=== PATIENT | male | born 1940 | race Caucasian/White ===

== ENCOUNTER 2016-06-25 16:48 | Emergency (ER) | payer MEDICARE, OTHER ==
[2016-06-25 16:01] LABS: WBC (NOT ORDERED) (RFLEX) 0 (0-5)
[2016-06-25 16:11] LABS: BASOPHILS 0.4 %; BASOPHILS ABSOLUTE 0.03 10/3/uL (0.0-0.16); EOSINOPHILS 2.6 %; EOSINOPHILS ABSOLUTE 0.22 10/3/uL (0.0-0.53); HEMOGLOBIN 12.9 g/dL (13.6-17.8); IMMATURE GRANULOCYTES 0.1 %; IMMATURE GRANULOCYTES ABSOLUTE 0.01 10/3/uL (0.0-0.11); LYMPHOCYTES 20.4 %; LYMPHOCYTES ABSOLUTE 1.74 10/3/uL (0.67-4.30); MEAN CORPUS HGB CONC 32.5 g/dL (32.0-36.0); MEAN CORPUSCULAR HEMOGLOB 26.9 pg (26.0-34.0); MEAN CORPUSCULAR VOLUME 82.7 fL (80-100); MEAN PLATELET VOLUME 11.3 fL (9.2-13.0); MONOCYTES 12.4 %; MONOCYTES ABSOLUTE 1.06 10/3/uL (0.21-1.20); NEUTROPHILS 64.1 %; NEUTROPHILS ABSOLUTE 5.48 10/3/uL (2.02-8.40); PLATELET COUNT 175 10/3/uL (150-400); RBC DISTRIBUTION WIDTH 14.3 % (12.0-16.0); WHITE BLOOD CELLS 8.5 10/3/uL (4.5-10.5)
[2016-06-25 16:14] LABS: HEMATOCRIT 39.7 % (40.0-51.0)
[2016-06-25 16:15] LABS: MANUAL DIFF NO %
[2016-06-25 16:15] LABS: ASCORBIC ACID (UR NOT ORDER) NEG (NEG); BILIRUBIN, URINE NEGATIVE (NEG); ER URINALYSIS TAT 0 Hrs 15 Mins; KETONE, URINE NEGATIVE (NEG); LEUKOCYTE ESTERASE(NOT OR NEG (NEG); NITRITE (URINE) NEG (NEG)
[2016-06-25 16:26] LABS: A/G RATIO 1.2 (0.7-1.9); ALBUMIN 3.8 G/DL (3.5-5.0); ALKALINE PHOSPHATASE 78 U/L (45-117); BUN (BLOOD UREA NITROGEN) 22 MG/DL (6-23); CALCIUM, SERUM 8.9 MG/DL (8.5-10.4); CHLORIDE, SERUM 109 MMOL/L (96-112); CO2 (CARBON DIOXIDE) 26 MMOL/L (24-34); CREATININE 1.57 MG/DL (0.70-1.30); GFR AFRICAN AMERICAN 49 ML/MIN (>=60); GFR NON AFRICAN AMERICAN 42 ML/MIN (>=60); GLOBULIN 3.3 G/DL (2.5-4.1); GLUCOSE, SERUM 85 MG/DL (60-99); POTASSIUM, SERUM 4.5 MMOL/L (3.5-5.3); SGOT(AST) 20 U/L (5-40); SGPT(ALT) 27 U/L (5-65); SODIUM, SERUM 142 MMOL/L (135-148); TOTAL BILIRUBIN 0.3 MG/DL (0-1.2); TOTAL PROTEIN 7.1 G/DL (6.0-8.5)
[~2016-06-25 16:48] MED LIST: ASAB PO; CLARIT10 PO; FLOMAX4 PO; GAS-X80 MG PO; GLUCOPHAGE1000 MG PO; GLUCOPHXR PO; LOP25 PO; MULTIPLE VIT PO; NEXIUM40 PO; NORV10 PO; PRILOSEC40 MG PO; PRIN10 PO; PROSCAR5 PO; STOOL SOFTEN100 MG PO; ZESTORETIC PO; ZOCOR40 PO
[2016-08-08] MEDS ORDERED: ZANTAC150 MG PO (16:08)
[2016-08-08] MEDS ORDERED: LOP50 PO (16:12)
[2016-08-08] MEDS ORDERED: STOOL SOFTENER (16:17)
[2016-08-08] MEDS ORDERED: [UNRECOGNIZED DRUG - OTHER] (16:19)
[2016-12-27] MEDS ORDERED: FORTAMET500 MG PO (20:10)
[2016-12-27] MEDS ORDERED: PRINZIDE1 TA1 PO (20:10)
[2016-12-27] MEDS ORDERED: PROSCAR5 PO (20:10)
[2016-12-27] MEDS ORDERED: PRILOSEC40 MG PO (20:10)
[2016-12-27] MEDS ORDERED: ZANTAC 150 PO (20:11)
[2016-12-27] MEDS ORDERED: FLOMAX4 PO (20:11)
[2016-12-27] MEDS ORDERED: ZOCOR80 MG PO (20:11)
[2016-12-27] MEDS ORDERED: MULTIVIT/MIN PO (20:14)
[2016-12-27] MEDS ORDERED: ALLEGRA180 PO (20:14)
[2016-12-27] MEDS ORDERED: HALF81 PO (20:14)
[2016-12-30] MEDS ORDERED: FLORASTOR250 MG PO (11:43)
[2016-12-30] MEDS ORDERED: P20 PO (11:44)
[2016-12-30] MEDS ORDERED: DURICEF PO (11:45)
== END 2016-06-25 17:30 | disposition home or self-care (01) ==
LOC: ER 16:48
PROVIDERS: Nurse Practitioner Acute Care
DX: M54.5 Low back pain (principal); I25.2 Old myocardial infarction; I10 Essential (primary) hypertension; E11.9 Type 2 diabetes mellitus without complications; Z87.442 Personal history of urinary calculi; Z95.1 Presence of aortocoronary bypass graft; Z85.038 Personal history of other malignant neoplasm of large intestine; Z88.2 Allergy status to sulfonamides; Z88.0 Allergy status to penicillin; Z91.09 Other allergy status, other than to drugs and biological substances; Z79.82 Long term (current) use of aspirin; Z79.899 Other long term (current) drug therapy
CPT/HCPCS: 74176; 80053; 81001; 83690; 85025; 99284

== ENCOUNTER 2016-08-08 16:35 | Observation (INO) | payer MEDICARE, OTHER ==
--- NOTE | ~2016-08-08 | CN ---
Consultation Report [facility] [address] [place]. [address] NAME: MG MERIDA : 39 STATUS : DIS Otoniel PAT#: [id number] AGE: 76 ADM/REG DATE : 08/08/16 MR#: [id number] REPORT SERV DATE: 08/09/16 DICTATED BY: CLEMENTE VELA DATE: 08/09/16 REPORT STATUS : Draft TRANSCRIBED BY: MODL DATE: 08/09/16 DATE OF CONSULTATION: Mg Merida is a 76-year-old male who is admitted through the emergency room with symptomatic bradycardia. CVD PHYSICIAN: Dr. Dejan Drake. PCP: Dr. Hugh Barry. REFERRING PHYSICIAN: Dr. Mcghee. HISTORY OF PRESENT ILLNESS: Mr. 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 This got worse and worse, became diaphoretic, and went to Dr. Barry's office who sent him to the hospital. His initial EKG showed a bradycardia with a heart rate in the high 40s. REVIEW OF SYSTEMS: No previous history of syncope, presyncope. He has chest pain in the evening, primarily after he eats. He does not have it during the day and is consistent with his history of GERD. He has no PND, lower extremity edema, palpitations. Rest is negative. PAST MEDICAL HISTORY: 1. CABG, 03/2011, without recurrent anginal based chest pain. 2. Hypertension, longstanding. 3. Hyperlipidemia, currently on simvastatin. 4. Diabetes, on oral hypoglycemics. 5. Chronic kidney disease. SOCIAL HISTORY: He does not drink or smoke. He is fairly inactive lifestyle. FAMILY HISTORY: Negative for early heart disease. PHYSICAL EXAMINATION: VITAL SIGNS: Blood pressure is 134/68, pulse is 66. He is afebrile. GENERAL: Resting comfortably, nutritional status appears adequate. EYES: PERRLA. LUNGS: No labored use of accessory muscles. Without rales or wheezes. COR: PMI is not displaced. No thrills or heaves. NL S1 and S2. No S3, murmur, click or rub. PULSES: Carotids without bruits. ABD: +BS, nontender. EXT: No cyanosis, clubbing or edema. SKIN: No petechiae. NEURO: Alert and oriented. Does not appear anxious or depressed. Consultation Report [facility] [address] [place] [address] NAME: MG MERIDA : 39 STATUS : DIS Otoniel PAT#: [id number] AGE: 76 ADM/REG DATE : 08/08/16 MR#: [id number] REPORT SERV DATE: 08/09/16 DICTATED BY: CLEMENTE VELA DATE: 08/09/16 REPORT STATUS : Draft TRANSCRIBED BY: AUGUSTINE DATE: 08/09/16 LABORATORY EVALUATION: Creatinine is elevated at 1.4. Troponin remain negative. EKG here shows sinus rhythm with no acute changes. Echocardiogram shows normal left ventricular function. ASSESSMENT: Bradycardia, probably secondary to beta blockade. At this time, we will discontinue the Lopressor and follow clinically for two to three months. NEVIN/AUGUSTINE Clemente Vela M.D. / [id number]
--- NOTE | ~2016-08-08 | HP ---
History And Physical [facility] [address] [place]. [address] NAME: DAO CRUM : 39 STATUS : ADM Otoniel PAT#: [id number] AGE: 76 ADM/REG DATE : 08/08/16 MR#: [id number] REPORT SERV DATE: 08/09/16 DICTATED BY: FREDY SULLIVAN DATE: 08/08/16 REPORT STATUS : Draft TRANSCRIBED BY: MODDieudonne DATE: 08/08/16 DATE OF ADMISSION: 08/08/2016 CHIEF COMPLAINT: Low heart rate and almost passing out with diaphoresis. HISTORY OF PRESENT ILLNESS: The patient is a 76-year-old male with past medical history of coronary disease status post CABG, type 2 diabetes, non-insulin dependent, hypertension, colon cancer status post chemo who presents after doing his normal ADLs after having breakfast this morning. The patient took his medications. Two hours later, the patient was noted to be significant in amount of dizziness and diaphoretic that was abrupt, went to his PCP for evaluation, and he was noted to be profoundly bradycardic in the 40s. The patient also had episodes of nausea, vomiting x3 times. Symptoms were moderate and have resolved. The patient was still noted to be bradycardic throughout the day. He has been on metoprolol consistently for a long time and did take his dose of metoprolol today. He denies any current chest pain, but does have nightly chest pain since he has had CABG years ago which he also attributes partially to his reflux for which he takes triple therapy for this. He did have diaphoresis, dizziness, discomfort that has all resolved. Positive for nausea with vomiting. There are no worsening or relieving symptoms. Symptoms are significantly better. His heart rate is slowly starting to improve, but the patient is still bradycardic in the mid low 50s up as high as 63. REVIEW OF SYSTEMS: For additional 10-point review of systems negative except for that noted in the HPI. PAST MEDICAL HISTORY: Coronary artery disease, hypertension, hyperlipidemia, previous colon cancer status post resection considered in remission, tobacco use history, diabetes, non- insulin dependent. ALLERGIES: TO PENICILLIN AND SULFA. SOCIAL HISTORY: with children at bedside. History of alcohol and tobacco but none currently and no illicits, still works on the farm. FAMILY HISTORY: Noted for lung cancer, diabetes, heart disease, stroke. SURGICAL HISTORY: Colectomy for colon cancer and coronary artery disease with CABG. The patient reports that he would not want any additional surgeries if they were required. MEDICATIONS: Aspirin, Proscar, Zestoretic, Claritin, Glucophage, Lopressor, multivitamin, Prilosec, Zantac, Zocor, Flomax, stool softener, and OTC supplement for acid. PHYSICAL EXAMINATION: VITAL SIGNS: The patient's blood pressure is 155/75, heart rate 55, temperature 98.5, respirations 14 to 16, O2 saturations 99% on room air. GENERAL: No acute distress. Calm, pleasant. History And Physical [address] [address] NAME: DAO CRUM : 39 STATUS : ADM Otoniel PAT#: [id number] AGE: 76 ADM/REG DATE : 08/08/16 MR#: [id number] REPORT SERV DATE: 08/09/16 DICTATED BY: FREDY SULLIVAN DATE: 08/08/16 REPORT STATUS : Draft TRANSCRIBED BY: AUGUSTINE DATE: 08/08/16 HEAD: Normocephalic, atraumatic. EYES: No scleral icterus. EOMI. ENT: Nares patent. Tongue midline. RESPIRATORY: Clear to auscultation. No wheezes. CV: Bradycardic with a 1:1 beat pulse ratio. No pedal edema. GI: Soft, nontender, nondistended. Bowel sounds positive. : Deferred. MUSCULOSKELETAL: Moves all extremities x4. SKIN: Warm, dry, slightly leathery. LYMPH: No cervical or supraclavicular lymphadenopathy. HEME: No bleeding or bruising. NEURO: Alert and oriented. Moves all extremities x4. Symmetrical strength upper and lower extremities. No resting tremor. PSYCH: Appropriate mood and affect, pleasant, eager to go home. DATA: EKG in clinic noted rate 45, but no dynamic ST changes. Repeat EKG in the emergency room; sinus bradycardia, rate of 56, QTc 418. PERTINENT LABS: Sodium 141, potassium 4.0, bicarb 25, BUN creatinine 26 and 1.52, glucose 154, magnesium 1.6. Troponin negative. WBC 9.9, H and H 12.7 and 37.6, platelets 163, INR 1.1. Portable chest, mild atelectasis. ASSESSMENT AND PLAN: 1. Near syncope. 2. Bradycardia. 3. Hypertension. 4. Gastroesophageal reflux disease. 5. Hypomagnesemia. 6. Nausea and vomiting. 7. Chest discomfort. 8. Diabetes type 2. 9. Chronic kidney disease stage IIIB. PLAN: 1. For near-syncope and bradycardia, syncope episode likely secondary to bradycardia on metoprolol, however, the patient has not had recent dose adjustments. No weight loss, weight gain. No increased activity or illnesses acutely. Unclear increased sensitivity to metoprolol, we will hold. Optimize electrolytes as the patient is mildly hypomagnesemic. Due to diaphoretic episodes, we will monitor troponins. No dynamic EKG changes. We will additionally order echocardiogram if negative workup. We will monitor on telemetry to monitor for any dysrhythmias. If any positive symptoms or results, the patient does see Dr. Drake in the clinic, may require Cardiology consult but we will defer this until workup has been completed, if not may require outpatient followup. 2. Hypertension, on medications. Hold beta-meg. 3. GERD, is on triple therapy with PPI, H2 blockers, and OTC. Symptoms happened after having history of colon cancer and CABG. History And Physical [address] [address] NAME: DAO CRUM : 39 STATUS : ADM Otoniel PAT#: [id number] AGE: 76 ADM/REG DATE : 08/08/16 MR#: [id number] REPORT SERV DATE: 08/09/16 DICTATED BY: FREDY SULLIVAN DATE: 08/08/16 REPORT STATUS : Draft TRANSCRIBED BY: MODL DATE: 08/08/16 4. Hypomagnesemia, questionable secondary to chronic PPI use. Replace for cardiac protection. 5. Nausea and vomiting. Supportive. 6. Chest discomfort secondary to bradycardia. We will monitor troponins, EKG, and check echocardiogram. 7. Diabetes type 2, sliding scale insulin. Only on p.o. medications. Check A1c, diabetic education. 8. CKD stage III, stable on LEIDY inhibitor, with history of diabetes and coronary disease. All questions answered to patient and family at bedside, they were agreeable to plan. DDN/MODL Fredy Sullivan MD / [id number] CC: Tobias Campbell D.O.
--- NOTE | ~2016-08-08 | DS ---
Discharge Summary [facility] [address] [place]. [address] NAME: DAO CRUM : 39 STATUS : DIS Otoniel PAT#: [id number] AGE: 76 ADM/REG DATE : 08/08/16 MR#: [id number] REPORT SERV DATE: 08/11/16 DICTATED BY: CHONG PAULSON DATE: 08/10/16 REPORT STATUS : Draft TRANSCRIBED BY: AUGUSTINE DATE: 08/10/16 ADMISSION DATE: 08/08/2016 DISCHARGE DATE: 08/09/2016 CONSULTATION: Cardiology Dr. Vela. PROCEDURE: None. DISCHARGE DIAGNOSES: 1. Symptomatic bradycardia. 2. Presyncope. 3. Hypertension. 4. Gastroesophageal reflux disease. 5. Diabetes mellitus type 2. 6. Chronic kidney disease stage IIIB. 7. History of coronary artery disease, status post CABG in February 2011 without recurrent angina. DISCHARGE CONDITION: Stable. HISTORY OF PRESENT ILLNESS: For detailed HPI please make reference to Dr. Srinivasan Dubois's dictation on 08/08/2016. In brief, this is a 76-year-old male, with medical history of coronary artery disease, status post CABG in 2010, diabetes mellitus type 2, hypertension, history of colon cancer, status post chemotherapy, who presented to the hospital with complaints of low heart rate, lightheadedness, dizziness, and diaphoresis. The patient was referred to the emergency room by his primary care physician. In the emergency room, the patient was noted to have a heart rate of 55 beats per minute. His laboratory data significant for creatinine of 1.5. An assessment of symptomatic bradycardia and presyncope was made in the ER, and the patient was admitted to the Hospitalist Service for further evaluation. HOSPITAL COURSE: Symptomatic bradycardia, the patient's metoprolol was held. The patient's heart rate improved from the 50s, back into the 60s without any further episodes of lightheadedness or presyncope. Cardiology was consulted. Cardiology recommended an echocardiogram. Echocardiogram showed a left ventricular ejection fraction of 50% without any significant valvular disease. The patient's heart rate remains in the 60s while off beta meg. The patient's tele showed only sinus bradycardia. No evidence of heart AV block. Cardiology recommended the patient to discontinue metoprolol and follow up with primary cardiology as an outpatient. At the time of discharge, the patient had no further episodes of presyncope, dizziness, or lightheadedness. The patient was advised to follow up with his primary care physician and Cardiology as outpatient. Chronic kidney disease,stage 3. The patient's creatinine on presentation was 1.5, last known baseline was 1.57. No evidence of acute kidney injury noted throughout the course of this admission. The patient was advised to continue follow up with Nephrology as an outpatient. Discharge Summary [address] [address] NAME: DAO CRUM : 39 STATUS : DIS Otoniel PAT#: [id number] AGE: 76 ADM/REG DATE : 08/08/16 MR#: [id number] REPORT SERV DATE: 08/11/16 DICTATED BY: CHONG PAULSON DATE: 08/10/16 REPORT STATUS : Draft TRANSCRIBED BY: AUGUSTINE DATE: 08/10/16 DISCHARGE DISPOSITION: Home. DISCHARGE ACTIVITIES: As tolerated. Greater than 35 minutes was used to prepare this patient's discharge, reconcile medication, and advised the patient on discharge plans and followup. IOO/RILEYL Chong Paulson MD / [id number] CC: MD Hugh Lopez D.O.
[2016-08-08 14:30] LABS: BASOPHILS 0.2 %; BASOPHILS ABSOLUTE 0.02 10/3/uL (0.0-0.16); EOSINOPHILS 0.4 %; EOSINOPHILS ABSOLUTE 0.04 10/3/uL (0.0-0.53); ER CBC TAT 0 Hrs 05 Mins; HEMATOCRIT 37.6 % (40.0-51.0); HEMOGLOBIN 12.5 g/dL (13.6-17.8); IMMATURE GRANULOCYTES 0.2 %; IMMATURE GRANULOCYTES ABSOLUTE 0.02 10/3/uL (0.0-0.11); LYMPHOCYTES 6.6 %; LYMPHOCYTES ABSOLUTE 0.65 10/3/uL (0.67-4.30); MEAN CORPUS HGB CONC 33.2 g/dL (32.0-36.0); MEAN CORPUSCULAR HEMOGLOB 27.4 pg (26.0-34.0); MEAN CORPUSCULAR VOLUME 82.5 fL (80-100); MEAN PLATELET VOLUME 10.6 fL (9.2-13.0); MONOCYTES 3.8 %; MONOCYTES ABSOLUTE 0.38 10/3/uL (0.21-1.20); NEUTROPHILS 88.8 %; NEUTROPHILS ABSOLUTE 8.78 10/3/uL (2.02-8.40); PLATELET COUNT 163 10/3/uL (150-400); RBC DISTRIBUTION WIDTH 14.6 % (12.0-16.0); RED CELL COUNT 4.56 10/6/uL (4.7-6.1); WHITE BLOOD CELLS 9.9 10/3/uL (4.5-10.5)
[2016-08-08 14:31] LABS: MANUAL DIFF NO %
[2016-08-08 14:37] LABS: INTERNATIONAL NORMAL RATI 1.1 UNITS (-); PARTIAL THROMBO TIME 28.2 SEC (22.5-37.2); PROTIME (NOT ORD) 13.8 SEC (12.0-14.5)
[2016-08-08 14:46] LABS: CALCIUM, SERUM 8.8 MG/DL (8.5-10.4); CHEST PAIN PROFILE TAT 0 Hrs 21 Mins; CHLORIDE, SERUM 106 MMOL/L (96-112); CO2 (CARBON DIOXIDE) 25 MMOL/L (24-34); CREATININE 1.52 MG/DL (0.70-1.30); GFR AFRICAN AMERICAN 50 ML/MIN (>=60); GFR NON AFRICAN AMERICAN 44 ML/MIN (>=60); SODIUM, SERUM 141 MMOL/L (135-148); TROPONIN I <0.02 NG/ML (<0.05)
[2016-08-08 14:48] LABS: BUN (BLOOD UREA NITROGEN) 26 MG/DL (6-23); GLUCOSE, SERUM 154 MG/DL (60-99)
[~2016-08-08 16:35] MED LIST changes: +LOP50 PO; +STOOL SOFTENER; +ZANTAC150 MG PO; +[UNRECOGNIZED DRUG - OTHER]
[2016-08-08 19:35] LABS: B NATRIURETIC PEPTIDE (BNP) 119.3 PG/ML (< 100.0)
[2016-08-08 21:22] LABS: GLYCOHEMOGLOBIN (HbA1c) 5.7 % (4.7-6.1)
[2016-08-09 06:34] LABS: BASOPHILS 0.3 %; BASOPHILS ABSOLUTE 0.02 10/3/uL (0.0-0.16); EOSINOPHILS 1.9 %; EOSINOPHILS ABSOLUTE 0.15 10/3/uL (0.0-0.53); HEMATOCRIT 35.6 % (40.0-51.0); IMMATURE GRANULOCYTES 0.1 %; IMMATURE GRANULOCYTES ABSOLUTE 0.01 10/3/uL (0.0-0.11); LYMPHOCYTES 20.1 %; MANUAL DIFF NO %; MEAN CORPUS HGB CONC 33.7 g/dL (32.0-36.0); MEAN CORPUSCULAR HEMOGLOB 27.6 pg (26.0-34.0); MEAN CORPUSCULAR VOLUME 81.8 fL (80-100); MEAN PLATELET VOLUME 10.5 fL (9.2-13.0); MONOCYTES 12.5 %; MONOCYTES ABSOLUTE 0.99 10/3/uL (0.21-1.20); NEUTROPHILS 65.1 %; NEUTROPHILS ABSOLUTE 5.18 10/3/uL (2.02-8.40); PLATELET COUNT 156 10/3/uL (150-400); RBC DISTRIBUTION WIDTH 14.4 % (12.0-16.0); RED CELL COUNT 4.35 10/6/uL (4.7-6.1)
[2016-08-09 06:50] LABS: BUN (BLOOD UREA NITROGEN) 23 MG/DL (6-23); CALCIUM, SERUM 8.6 MG/DL (8.5-10.4); CHLORIDE, SERUM 110 MMOL/L (96-112); CO2 (CARBON DIOXIDE) 23 MMOL/L (24-34); CREATININE 1.43 MG/DL (0.70-1.30); GFR AFRICAN AMERICAN 54 ML/MIN (>=60); GFR NON AFRICAN AMERICAN 47 ML/MIN (>=60); POTASSIUM, SERUM 4.1 MMOL/L (3.5-5.3); SODIUM, SERUM 142 MMOL/L (135-148); TROPONIN I <0.02 NG/ML (<0.05)
[2016-08-09 06:51] LABS: GLUCOSE, SERUM 96 MG/DL (60-99)
[2016-12-27] MEDS ORDERED: PRINZIDE1 TA1 PO (20:10)
[2016-12-27] MEDS ORDERED: FORTAMET500 MG PO (20:10)
[2016-12-27] MEDS ORDERED: PROSCAR5 PO (20:10)
[2016-12-27] MEDS ORDERED: PRILOSEC40 MG PO (20:10)
[2016-12-27] MEDS ORDERED: FLOMAX4 PO (20:11)
[2016-12-27] MEDS ORDERED: ZANTAC 150 PO (20:11)
[2016-12-27] MEDS ORDERED: ZOCOR80 MG PO (20:11)
[2016-12-27] MEDS ORDERED: ALLEGRA180 PO (20:14)
[2016-12-27] MEDS ORDERED: HALF81 PO (20:14)
[2016-12-27] MEDS ORDERED: MULTIVIT/MIN PO (20:14)
[2016-12-30] MEDS ORDERED: FLORASTOR250 MG PO (11:43)
[2016-12-30] MEDS ORDERED: P20 PO (11:44)
[2016-12-30] MEDS ORDERED: DURICEF PO (11:45)
== END 2016-08-09 18:31 | disposition home or self-care (01) ==
LOC: ER 16:35 → 6NO 16:40
PROVIDERS: Emergency Medicine; Hospitalist
DX: R00.1 Bradycardia, unspecified (principal); R55 Syncope and collapse; I25.10 Atherosclerotic heart disease of native coronary artery without angina pectoris; E11.9 Type 2 diabetes mellitus without complications; E78.5 Hyperlipidemia, unspecified; E11.22 Type 2 diabetes mellitus with diabetic chronic kidney disease; N18.3 Chronic kidney disease, stage 3 (moderate); E83.42 Hypomagnesemia; K21.9 Gastro-esophageal reflux disease without esophagitis; I12.9 Hypertensive chronic kidney disease with stage 1 through stage 4 chronic kidney disease, or unspecified chronic kidney disease; Z88.0 Allergy status to penicillin; Z88.2 Allergy status to sulfonamides; Z79.82 Long term (current) use of aspirin; Z79.899 Other long term (current) drug therapy; Z95.1 Presence of aortocoronary bypass graft
CPT/HCPCS: 71020; 80048; 82962; 83036; 83735; 83880; 84443; 84484; 85025; 85610; 85730; 93005; 93306; 96372; 96374; 96376; 99285; A9270-GY; G0378

== ENCOUNTER 2016-08-25 06:07 | Emergency (ER) | payer MEDICARE, OTHER ==
[2016-08-25 04:44] LABS: BASOPHILS 0.2 %; BASOPHILS ABSOLUTE 0.02 10/3/uL (0.0-0.16); EOSINOPHILS 1.5 %; EOSINOPHILS ABSOLUTE 0.15 10/3/uL (0.0-0.53); ER CBC TAT 0 Hrs 03 Mins; HEMATOCRIT 37.8 % (40.0-51.0); HEMOGLOBIN 12.5 g/dL (13.6-17.8); IMMATURE GRANULOCYTES 0.2 %; IMMATURE GRANULOCYTES ABSOLUTE 0.02 10/3/uL (0.0-0.11); LYMPHOCYTES ABSOLUTE 1.07 10/3/uL (0.67-4.30); MEAN CORPUS HGB CONC 33.1 g/dL (32.0-36.0); MEAN CORPUSCULAR HEMOGLOB 27.5 pg (26.0-34.0); MEAN CORPUSCULAR VOLUME 83.3 fL (80-100); MEAN PLATELET VOLUME 10.3 fL (9.2-13.0); MONOCYTES ABSOLUTE 0.97 10/3/uL (0.21-1.20); NEUTROPHILS 77.1 %; NEUTROPHILS ABSOLUTE 7.49 10/3/uL (2.02-8.40); PLATELET COUNT 145 10/3/uL (150-400); RBC DISTRIBUTION WIDTH 14.7 % (12.0-16.0); RED CELL COUNT 4.54 10/6/uL (4.7-6.1); WHITE BLOOD CELLS 9.7 10/3/uL (4.5-10.5)
[2016-08-25 04:45] LABS: MANUAL DIFF NO %
[2016-08-25 04:55] LABS: PARTIAL THROMBO TIME 26.7 SEC (22.5-37.2); PROTIME (NOT ORD) 13.2 SEC (12.0-14.5)
[2016-08-25 05:06] LABS: ALBUMIN 3.9 G/DL (3.5-5.0); ALKALINE PHOSPHATASE 72 U/L (45-117); BUN (BLOOD UREA NITROGEN) 25 MG/DL (6-23); CALCIUM, SERUM 9.5 MG/DL (8.5-10.4); CHEST PAIN PROFILE TAT 0 Hrs 25 Mins; CHLORIDE, SERUM 109 MMOL/L (96-112); CO2 (CARBON DIOXIDE) 23 MMOL/L (24-34); CREATININE 1.51 MG/DL (0.70-1.30); DIRECT BILIRUBIN 0.1 MG/DL (0.0-0.4); GFR AFRICAN AMERICAN 51 ML/MIN (>=60); GFR NON AFRICAN AMERICAN 44 ML/MIN (>=60); INDIRECT BILIRUBIN(NOT ORDER) 0.2 MG/DL (0.1-0.9); POTASSIUM, SERUM 4.1 MMOL/L (3.5-5.3); SGOT(AST) 16 U/L (5-40); SGPT(ALT) 25 U/L (5-65); SODIUM, SERUM 143 MMOL/L (135-148); TOTAL BILIRUBIN 0.3 MG/DL (0-1.2); TROPONIN I <0.02 NG/ML (<0.05)
[2016-08-25 05:07] LABS: GLUCOSE, SERUM 116 MG/DL (60-99)
[2016-12-27] MEDS ORDERED: FORTAMET500 MG PO (20:10)
[2016-12-27] MEDS ORDERED: PRILOSEC40 MG PO (20:10)
[2016-12-27] MEDS ORDERED: PROSCAR5 PO (20:10)
[2016-12-27] MEDS ORDERED: PRINZIDE1 TA1 PO (20:10)
[2016-12-27] MEDS ORDERED: ZANTAC 150 PO (20:11)
[2016-12-27] MEDS ORDERED: FLOMAX4 PO (20:11)
[2016-12-27] MEDS ORDERED: ZOCOR80 MG PO (20:11)
[2016-12-27] MEDS ORDERED: MULTIVIT/MIN PO (20:14)
[2016-12-27] MEDS ORDERED: ALLEGRA180 PO (20:14)
[2016-12-27] MEDS ORDERED: HALF81 PO (20:14)
[2016-12-30] MEDS ORDERED: FLORASTOR250 MG PO (11:43)
[2016-12-30] MEDS ORDERED: P20 PO (11:44)
[2016-12-30] MEDS ORDERED: DURICEF PO (11:45)
== END 2016-08-25 06:18 | disposition home or self-care (01) ==
LOC: ER 06:07
PROVIDERS: Specialist
DX: R53.1 Weakness (principal); I12.9 Hypertensive chronic kidney disease with stage 1 through stage 4 chronic kidney disease, or unspecified chronic kidney disease; N18.9 Chronic kidney disease, unspecified; E11.9 Type 2 diabetes mellitus without complications; Z95.1 Presence of aortocoronary bypass graft; Z88.0 Allergy status to penicillin; Z88.2 Allergy status to sulfonamides; Z79.82 Long term (current) use of aspirin
CPT/HCPCS: 70450; 80048; 80076; 83690; 83735; 84484; 85025; 85610; 85730; 93005; 99284; A9270-GY